=== PATIENT | female | born 1990 | race Caucasian/White ===

== ENCOUNTER 2017-01-11 08:49 | Emergency (ER) | payer MEDICAID ==
[2017-01-11 09:01] VITALS: BMI 34.7
[2017-01-11 09:07] VITALS: BP 134/82; RESP 20; TEMP 100.3
--- NOTE | 2017-01-11 09:24 | C.PDOC ---
History Of Present Illness 26 y/o F c no PMHx NKDA p/w sore throat. Initially dry for 2 weeks but now for the last 2 days, more painful, odynophagia, no cough, fever at home of 101. Denies drooling, stridor, stiff neck. Time Seen by Provider: 01/11/17 09:17 Chief Complaint (Nursing): ENT Problem Past Medical History Vital Signs: Last Vital Signs Temp 100.3 F H 01/11/17 09:01 Pulse 119 H 01/11/17 09:01 Resp 20 01/11/17 09:01 BP 134/82 01/11/17 09:01 Pulse Ox 96 01/11/17 09:01 Surgical History: Cholecystectomy (2012) Family History: States: Unknown Family Hx - Social History Hx Alcohol Use: No Hx Substance Use: No - Immunization History Hx Tetanus Toxoid Vaccination: No Hx Influenza Vaccination: No Hx Pneumococcal Vaccination: No Review Of Systems Except As Marked, All Systems Reviewed And Found Negative. Constitutional: Positive for: Fever ENT: Negative for: Ear Pain Cardiovascular: Negative for: Chest Pain Physical Exam - Physical Exam Appears: Non-toxic, No Acute Distress Skin: Normal Color Head: Atraumatic, Normacephalic Eye(s): bilateral: Normal Inspection Nose: No Discharge Oral Mucosa: Moist Tongue: Normal Appearing Lips: Normal Appearing Throat: Erythema Neck: Normal ROM, No Midline Cervical Tenderness, Supple Lymphatic: Adenopathy Respiratory: No Accessory Muscle Use Neurological/Psych: Normal Speech, Normal Cognition Gait: Steady ED Course And Treatment O2 Sat by Pulse Oximetry: 96 Medical Decision Making Medical Decision Making: Return to ER for worsening pain, fever, vomiting, inability to swallow, or any other problem. Disposition - Disposition Referrals: [facility] [Outside] Disposition: HOME/ ROUTINE Disposition Time: 09:25 Condition: STABLE Prescriptions: Amoxicillin 1 tab PO BID #19 tablet Ibuprofen [Motrin] 600 mg PO Q6 #25 tab Instructions: Tonsillitis (ED) Forms: Work Excuse - Clinical Impression Clinical Impression: Tonsillitis
[2017-01-11 09:49] VITALS: PULSE 104; O2SAT 97
== END 2017-01-11 09:49 | disposition home or self-care (01) ==
LOC: C.ER 08:49
DX: J03.90 Acute tonsillitis, unspecified (principal)
CPT/HCPCS: 96372; 99283; J1885

== ENCOUNTER 2017-11-22 09:37 | Emergency (ER) | payer MEDICAID ==
[2017-11-22 09:38] VITALS: BMI 34.7
[2017-11-22 09:52] VITALS: RESP 16; O2SAT 98
--- NOTE | 2017-11-22 11:31 | C.PDOC ---
History Of Present Illness 26 y/o female presents to the ER complaining of redness, swelling, and discharge in the left eye which has been present for 1 day. She also states she has a scratchy throat. Denies having fever and chills. Time Seen by Provider: 11/22/17 11:02 Chief Complaint (Nursing): Eye Problem History Per: Patient History/Exam Limitations: no limitations Onset/Duration Of Symptoms: Days Current Symptoms Are (Timing): Still Present Severity: Moderate Past Medical History Reviewed: Historical Data, Nursing Documentation, Vital Signs Vital Signs: Last Vital Signs Temp 98.9 F 11/22/17 12:18 Pulse 68 11/22/17 12:18 Resp 16 11/22/17 12:18 BP 124/72 11/22/17 12:18 Pulse Ox 98 11/22/17 16:11 - Medical History PMH: No Chronic Diseases Surgical History: Cholecystectomy Family History: States: No Known Family Hx - Social History Hx Alcohol Use: No Hx Substance Use: No - Immunization History Hx Tetanus Toxoid Vaccination: No Hx Influenza Vaccination: No Hx Pneumococcal Vaccination: No Review Of Systems Constitutional: Negative for: Fever, Chills Eyes: Positive for: Redness (left eye), Other (swelling and discharge in left eye) Physical Exam - Physical Exam Appears: Non-toxic, No Acute Distress Skin: Normal Color, Warm Head: Atraumatic, Normacephalic Eye(s): bilateral: PERRL, EOMI, right: Normal Inspection, left: Other (mild conjunctival injection) Ear(s): Bilateral: Normal Nose: No Discharge Oral Mucosa: Moist Throat: Erythema, No Exudate Neck: Supple Chest: Symmetrical Cardiovascular: Rhythm Regular, No Murmur Respiratory: No Decreased Breath Sounds, No Wheezing Gastrointestinal/Abdominal: Soft, No Tenderness Neurological/Psych: Oriented x3, Normal Speech, Normal Cognition, Other ( exhibiting age appropriate behavior) ED Course And Treatment O2 Sat by Pulse Oximetry: 98 (RA) Pulse Ox Interpretation: Normal Medical Decision Making Medical Decision Making: rapid strep, tx for conjunctivitis Disposition Counseled Patient/Family Regarding: Studies Performed, Diagnosis, Need For Followup, Rx Given - Disposition Referrals: [facility] [Outside] Disposition: HOME/ ROUTINE Disposition Time: 12:17 Condition: STABLE Additional Instructions: Gargle with warm salt water several times a day. Tylenol for pain if needed. Use 1/2 inch ribbon of ointment in left eye 3-4 times a day. FOllow up in medical clinic in a few days. Prescriptions: Erythromycin 0.5% [Ilytocin] 3.5 gm OD Q6 #1 tube Instructions: Pharyngitis (ED), Conjunctivitis (ED) Forms: General Discharge Instructions, [facility] ([place]), Work Excuse - Clinical Impression Clinical Impression: Pharyngitis, Conjunctivitis - PA / [employer] / Resident Statement MD/DO has reviewed & agrees with the documentation as recorded. - Scribe Statement The provider has reviewed the documentation as recorded by the Arnulfoibe Giselle Paredes Provider Attestation All medical record entries made by the Scribe were at my direction and personally dictated by me. I have reviewed the chart and agree that the record accurately reflects my personal performance of the history, physical exam, medical decision making, and the department course for this patient. I have also personally directed, reviewed, and agree with the discharge instructions and disposition.
[2017-11-22 12:19] VITALS: BP 124/72; PULSE 68; TEMP 98.9
== END 2017-11-22 12:36 | disposition home or self-care (01) ==
LOC: C.ER 09:37
DX: J02.9 Acute pharyngitis, unspecified (principal); H10.9 Unspecified conjunctivitis